=== PATIENT | male | born 1995 | race Caucasian/White ===

== ENCOUNTER 2016-11-10 20:06 | Emergency (ER) | payer BC ==
[~2016-11-10] VITALS: Ht 182.9 cm; Wt 81.2 kg
[~2016-11-10 20:06] MED LIST: FLEXERIL10 MG PO; FLONASE16 G1 BOTH NARES; INDOCIN25 MG PO; MOBIC15 MG PO; MUCUS ER600 MG PO; PEN-VEE K,VEET500 MG PO; PREDNISONE20 MG PO
[2016-11-10] MEDS ORDERED: XYLOCAINE VISC100 ML MM (21:47)
[2016-11-10 22:32] VITALS: BP 135/82
== END 2016-11-10 22:44 | disposition home or self-care (01) ==
LOC: EME 20:06
DX: B34.9 Viral infection, unspecified (principal)
CPT/HCPCS: 87651 90; 99281; 99284

== ENCOUNTER 2016-12-19 11:34 | Emergency (ER) | payer BC ==
[~2016-12-19] VITALS: Ht 182.9 cm; Wt 79.6 kg
[~2016-12-19 11:34] MED LIST changes: +XYLOCAINE VISC100 ML MM
[2016-12-19 12:39] LABS: HEMATOCRIT 44.7 % (38.0-50.0); MCH 29.7 PG (29.0-34.0); MCHC 33.6 G/DL (30.0-36.0); MCV 88.5 FL (86-99); PLATELET COUNT 211 K/uL (156-360); RBC DIS.WIDTH-CV 12.6 % (11.8-14.6); RBC DIS.WIDTH-SD 40.3 % (39-53); RED BLOOD COUNT 5.05 M/uL (4.00-5.50); WHITE BLOOD COUNT 8.3 K/uL (4.1-10.2)
[2016-12-19 12:49] LABS: D-DIMER ELISA < 150.00 ng/mLDDU (<230)
[2016-12-19 12:56] LABS: CHLORIDE 104 mEq/L (99-109); SODIUM 141 mEq/L (136-147)
[2016-12-19 12:58] LABS: GLUCOSE 78 mg/dL (70-99)
[2016-12-19 12:59] LABS: ANION GAP 10 MEQ/L (2-14)
[2016-12-19 13:01] LABS: TROP-I INTERPRETATION NEGATIVE; TROPONIN-I < 0.01 ng/mL (0.0-0.30)
[2016-12-19 13:02] LABS: GFR ESTIMATE (CALCULATED) > 59 mL/min/; UREA NITROGEN (BUN) 10 mg/dL (9-23)
[2016-12-19] MEDS ORDERED: MOBIC7.5 MG PO (13:12)
[2016-12-19 13:54] VITALS: BP 126/80
== END 2016-12-19 13:54 | disposition home or self-care (01) ==
LOC: EME 11:34
PROVIDERS: Nurse Practitioner Family
DX: R07.81 Pleurodynia (principal)
CPT/HCPCS: 71020; 80048; 84484; 85027; 85379; 93005; 99281; 99283

== ENCOUNTER 2017-05-19 07:16 | Emergency (ER) | payer BC ==
[~2017-05-19] VITALS: Ht 182.9 cm; Wt 78.6 kg
[~2017-05-19 07:16] MED LIST changes: +MOBIC7.5 MG PO
[2017-05-19 08:48] LABS: HEMATOCRIT 43.5 % (38.0-50.0); HEMOGLOBIN 15.2 G/DL (12.5-16.6); MCHC 34.9 G/DL (30.0-36.0); MCV 85.8 FL (86-99); PLATELET COUNT 137 K/uL (156-360); RBC DIS.WIDTH-CV 13.1 % (11.8-14.6); RBC DIS.WIDTH-SD 40.4 % (39-53); RED BLOOD COUNT 5.07 M/uL (4.00-5.50); WHITE BLOOD COUNT 6.3 K/uL (4.1-10.2)
[2017-05-19 09:02] LABS: ALBUMIN 4.2 g/dL (3.2-4.8); CHLORIDE 102 mEq/L (99-109); POTASSIUM 3.8 mEq/L (3.7-5.4); SODIUM 138 mEq/L (136-147)
[2017-05-19 09:05] LABS: GLUCOSE 93 mg/dL (70-99); TOTAL PROTEIN 7.1 g/dL (6.4-8.3)
[2017-05-19 09:07] LABS: TOTAL BILIRUBIN 1.2 mg/dL (0.0-1.0)
[2017-05-19 09:08] LABS: ALKALINE PHOSPHATASE 56 IU/L (3-129); GFR ESTIMATE (CALCULATED) > 59 mL/min/ (58.99-99999)
[2017-05-19 09:09] LABS: UREA NITROGEN (BUN) 13 mg/dL (9-23)
[2017-05-19 09:10] LABS: AST (GOT) 17 IU/L (2-34)
[2017-05-19 09:11] LABS: ALT (GPT) 17 IU/L (3-49)
[2017-05-19 09:12] LABS: TROP-I INTERPRETATION NEGATIVE; TROPONIN-I < 0.01 ng/mL (0.0-0.30)
[2017-05-19] MEDS ORDERED: FLEXERIL10 MG PO (09:33)
[2017-05-19] MEDS ORDERED: NAPROSYN500 MG PO (09:33)
[2017-05-19 09:46] VITALS: BP 120/83
== END 2017-05-19 09:48 | disposition home or self-care (01) ==
LOC: EME 07:16
PROVIDERS: Nurse Practitioner Family
DX: R07.1 Chest pain on breathing (principal); F17.210 Nicotine dependence, cigarettes, uncomplicated; Z71.6 Tobacco abuse counseling; M06.9 Rheumatoid arthritis, unspecified; I49.8 Other specified cardiac arrhythmias
CPT/HCPCS: 71020; 80053; 84484; 85027; 93005; 99281; 99284; J1885